=== PATIENT | male | born 1990 | race Caucasian/White ===

== ENCOUNTER 2016-12-18 22:56 | Emergency (ER) | payer SELFPAY ==
[~2016-12-18] VITALS: Ht 182.9 cm; Wt 121.1 kg
[2016-12-18 23:05] VITALS: BP 131/81
[2016-12-18] MEDS ORDERED: CIPR5DRO AD (23:45)
[2016-12-18] MEDS ORDERED: TRAM-48 PO (23:45)
[2016-12-18] MEDS ORDERED: AMOX500C PO (23:45)
--- NOTE | 2016-12-18 23:46 | PHYS DOC ---
Past History Past Medical History: No Pertinent History Past Surgical History: No Surgical History Alcohol Use: Occasionally Drug Use: None Adult General Chief Complaint Chief Complaint: EARACHE/EAR PAIN HPI HPI Patient is a 26-year-old gentleman with no past medical history who presents here today complaining of pain to his right ear for several days. Patient has tried several home remedies without improvement.Patient denies any recent swimming. Patient has any drainage. Patient has any history of hypertension diabetes liver longer kidney problems. Patient is allergic to any medications. Patient does not drink or do any drugs. Patient reports she's had some tactile fevers at home. Patient denies any nausea vomiting diarrhea chest pain shortness of breath cough cold or runny nose. Patient has a sore throat or ear pain. Review of systems: Constitutional: Denies fever or chills Eyes: Denies change in visual acuity, redness, or eye pain HENT: Denies nasal congestion or sore throat All other review systems are negative except as documented in the history of present illness portion. Physical exam: Constitutional: Well developed, well nourished, no acute distress, non-toxic appearance. HENT: Normocephalic, atraumatic, bilateral external ears normal, oropharynx moist, no oral exudates, nose normal. Eyes: PERRLA, EOMI, conjunctiva normal, no discharge. Neck: Normal range of motion, no tenderness, supple, no stridor. Cardiovascular:Heart rate regular rhythm Lungs & Thorax: Bilateral breath sounds clear to auscultation Abdomen: Bowel sounds normal, soft, no tenderness, no masses, no pulsatile masses. Skin: Warm, dry, no erythema, no rash. Back: No tenderness, no CVA tenderness. Extremities: No tenderness, no cyanosis, no clubbing, ROM intact, no edema. Neurologic: Alert and oriented X 3, normal motor function, normal sensory function, no focal deficits noted. Psychologic: Affect normal, judgement normal, mood normal. Patient's physical exam was significant for drainage of his right ear with swelling in his ear canal and mild erythematous tympanic membrane. Patient does have anterior and posterior auricular lymph nodes. Assessment and plan This is a 26-year-old who presents with signs and symptoms consistent with otitis externa with likely otitis media. Patient does not have any mastoid bone tenderness. Patient has no signs or symptoms consistent with meningitis. Patient 's neck is supple with no Kernig's or Buczynski sign and no nuchal rigidity. Patient be discharged home on amoxicillin and Ciloxan eardrops and instructed to follow-up with his doctor or return the ER in 2 days if the symptoms aren't significantly improved. Patient was given a prescription for Ciloxan, amoxicillin, Ultram and instructed to take ibuprofen [id number]. Current Patient Data Vital Signs Vital Signs Date Time Temp Pulse Resp B/P (MAP) Pulse Ox O2 Delivery O2 Flow Rate FiO2 12/18/16 23:05 97.9 67 20 98 Room Air EKG EKG [] Radiology/Procedures Radiology/Procedures [] Course & Med Decision Making Course & Med Decision Making Pertinent Labs and Imaging studies reviewed. (See chart for details) [] Dragon Disclaimer Dragon Disclaimer This chart was dictated in whole or in part using Voice Recognition software in a busy, high-work load, and often noisy Emergency Department environment. It may contain unintended and wholly unrecognized errors or omissions. Departure Departure: Impression: Primary Impression: Otitis media Additional Impression: Otitis externa Disposition: 01 HOME, SELF-CARE Condition: IMPROVED Referrals: PCP,NO (PCP) Patient Instructions: Otitis Externa, Otitis Media, Adult Scripts Tramadol Hcl (ULTRAM) 50 Mg Tablet 50 MG PO PRN Q6HRS Y for PAIN, #20 TAB Prov: MARJORIE MALONE MD 12/18/16 Amoxicillin (AMOXICILLIN) 500 Mg Capsule 1 CAP PO TID, #30 CAP Prov: MARJORIE MALONE MD 12/18/16 Ciprofloxacin Hcl (CILOXAN) 5 Ml Drops 1 DROP AD TID for 5 Days, #5 ML Prov: MARJORIE MALONE MD 12/18/16 Problem Qualifiers MARJORIE MALONE MD Dec 18, 2016 23:46
[2016-12-19] MEDS ORDERED: traMADol 50 MG TABLET PO ONE
[2016-12-19] MEDS ORDERED: AMOXICILLIN 500 MG CAPSULE PO ONE
== END 2016-12-18 23:58 | disposition home or self-care (01) ==
LOC: ER 22:56
DX: H66.91 Otitis media, unspecified, right ear (principal); H60.91 Unspecified otitis externa, right ear
CPT/HCPCS: 99283